=== PATIENT | male | born 1985 | race Caucasian/White ===

== ENCOUNTER 2016-12-24 21:45 | Emergency (ER) | payer BC ==
[~2016-12-24] VITALS: Ht 177.8 cm; Wt 80.0 kg
[2016-12-24 21:50] VITALS: Ht 177.8 cm; Wt 80.0 kg
--- NOTE | 2016-12-24 22:48 | ERD ---
ER Documentation Chief Complaint Chief Complaint bib self, cc: cough x 2 weeks, "staying at a hotel with rats in [place]" HPI 31-year-old male who presents emergency department for cough that is on and off for about 2 months. Stated it is staying in a hotel with rats behind the [place]. Denies headache, dizziness, blurry vision, neck pain, throat pain, difficulty swallowing, shoulder pain, chest pain, difficulty breathing when lying flat, back pain, abdominal pain, nausea, vomiting, constipation, diarrhea, loss of bowel bladder control, changes in bowel bladder habits, difficulty walking, recent exposure to any illness, recent long travel, recent antibiotic use in the last 3 months, fever, chills. No known drug allergies. No past medical history. Surgical history: Right carpal tunnel syndrome surgery. Medication: Aleve. Social: Works as a construction coordinator. Smokes 1 pack of cigarettes a day. Occasional drinks alcoholic beverages. occasionally uses marijuana. Denies use of illegal drugs. ROS All systems reviewed and are negative except as per history of present illness. Medications Home Meds Active Scripts Benzonatate* (Tessalon Perle*) 100 Mg Capsule, 200 MG PO TID Y for COUGH, #20 CAP Prov:PASILABANCHARITOAR F 12/24/16 Azithromycin* (Zithromax*) 250 Mg Tablet, 250 MG PO .ZPACK DIRECTED, #6 TAB TAKE 500 MG (2 TABS) THE FIRST DAY THEN 250 MG (1 TAB) DAYS 2-5 Prov:GILILABANCHARITOAR F 12/24/16 Allergies Allergies: Coded Allergies: No Known Allergy (Unverified , 12/24/16) PMhx/Soc Medical and Surgical Hx: pt denies Medical Hx, pt denies Surgical Hx Hx Alcohol Use: Yes Hx Substance Use: Yes (MJ) Hx Tobacco Use: Yes Smoking Status: Current every day smoker Physical Exam Vitals Vital Signs Date Time Temp Pulse Resp B/P Pulse Ox O2 Delivery O2 Flow Rate FiO2 12/24/16 21:50 98.6 66 18 150/84 100 Physical Exam Const: [] Head: Atraumatic Eyes: Normal Conjunctiva ENT: Normal External Ears, Nose and Mouth. Neck: Full range of motion..~ No meningismus. Resp: Clear to auscultation bilaterally Cardio: Regular rate and rhythm, no murmurs Abd: Soft, non tender, non distended. Normal bowel sounds Skin: No petechiae or rashes Back: No midline or flank tenderness Ext: No cyanosis, or edema Neur: Awake and alert Psych: Normal Mood and Affect Procedures/MDM 31-year-old male who presents emergency department for cough that is on and off for about 2 months. Stated it is staying in a hotel with rats behind the [place]. Denies headache, dizziness, blurry vision, neck pain, throat pain, difficulty swallowing, shoulder pain, chest pain, difficulty breathing when lying flat, back pain, abdominal pain, nausea, vomiting, constipation, diarrhea, loss of bowel bladder control, changes in bowel bladder habits, difficulty walking, recent exposure to any illness, recent long travel, recent antibiotic use in the last 3 months, fever, chills. No known drug allergies. No past medical history. Surgical history: Right carpal tunnel syndrome surgery. Medication: Aleve. Social: Works as a construction coordinator. Smokes 1 pack of cigarettes a day. Occasional drinks alcoholic beverages. occasionally uses marijuana. Denies use of illegal drugs. Physical exam: Unremarkable. Disease process was explained to the patient and family member. They both verbalized understanding and agreed with the treatment and plan of care. Differential diagnosis: Pneumonia versus bronchitis versus viral upper respiratory infection Final diagnosis: Bronchitis. Prescription: Azithromycin. Jean-Pierre Rich. Follow-up with PCP in the next 24-48 hours. Come back here in the emergency department for any new symptoms or worsening symptoms. All questions and concerns are answered. Patient and family member verbalized understanding and agreed with the plan of care. Hemodynamically stable on discharge. Departure Diagnosis: Primary Impression: Cough Additional Impression: Bronchitis Condition: Stable Additional Instructions: Follow-up with PCP in the next 24-48 hours. Come back here in the emergency department for any new symptoms or worsening symptoms. All questions and concerns are answered. Patient and family member verbalized understanding and agreed with the plan of care. ZAID WAGONER Dec 24, 2016 22:48
[2016-12-24] MEDS ORDERED: BENZ100C70 PO (22:49)
[2016-12-24] MEDS ORDERED: AZIT250T94 PO (22:49)
== END 2016-12-24 22:55 | disposition home or self-care (01) ==
LOC: FTE 21:45
DX: R05 Cough (principal); J20.9 Acute bronchitis, unspecified; F17.210 Nicotine dependence, cigarettes, uncomplicated
CPT/HCPCS: 99284

== ENCOUNTER 2017-07-29 15:29 | Emergency (ER) | END 2017-07-29 17:39 | disposition home or self-care (01) ==